=== PATIENT | female | born 1985 | race Caucasian/White ===

== ENCOUNTER 2016-11-18 19:18 | Inpatient (IN) | payer OTHER ==
[~2016-11-18] VITALS: Ht 172.7 cm; Wt 90.0 kg
[2016-11-18] MEDS ORDERED: OXYTOCIN 30U/ 0.9% NaCL 500ML 500 ML IV ONE (19:24)
[2016-11-18] MEDS ORDERED: FENTANYL PF 100 MCG/2ML ONE (19:27)
[2016-11-18] MEDS ORDERED: NEWBORN KIT ONE (19:27)
[2016-11-18] MEDS ORDERED: OXYTOCIN 30U/ 0.9% NaCL 500ML 500 ML ONE (19:27)
[2016-11-18] MEDS ORDERED: ONDANSETRON 2MG/ML, 2ML IVPush PRN (19:30)
[2016-11-18] MEDS ORDERED: FENTANYL PF 100 MCG/2ML IVPush PRN (19:30)
[2016-11-18] MEDS ORDERED: FENTANYL PF 100 MCG/2ML IV PRN (19:30)
[2016-11-18] MEDS: LACTATED RINGERS 1,000 ML IV SCH ×2 (19:35→19:55)
[2016-11-18] MEDS ORDERED: PLEASE ENTER HEIGHT AND WEIGHT MC SCH (20:00)
[2016-11-18] MEDS ORDERED: FENTANYL/BUPIV./NS/PF 250 ML EPIDCONT ONE (20:05)
[2016-11-18] MEDS ORDERED: LACTATED RINGERS 1,000 ML IV SCH (20:48)
[2016-11-18] MEDS ORDERED: FENTANYL/BUPIV./NS/PF 250 ML EPIDCONT SCH (20:48)
[2016-11-18] MEDS ORDERED: NALOXONE 0.4 MG/ML, 1ML IVPush PRN (21:00)
[2016-11-18] MEDS ORDERED: LACTATED RINGERS 1,000 ML IVBOLUS PRN (21:00)
[2016-11-18] MEDS ORDERED: EPHEDRINE 50 MG/ML, 1ML IVPush PRN (21:00)
[2016-11-18] MEDS ORDERED: MISOPROSTOL 200 MCG TABLET ONE (21:11)
[2016-11-18] MEDS ORDERED: OXYTOCIN 30U/ 0.9% NaCL 500ML 500 ML IV SCH (21:53)
[2016-11-18] MEDS ORDERED: MISOPROSTOL 200 MCG TABLET SL PRN (22:00)
[2016-11-18] MEDS ORDERED: OXYcodone/APAP 5/325MG TABLET PO PRN ×2 (22:00)
[2016-11-18] MEDS ORDERED: ONDANSETRON 2MG/ML, 2ML IV PRN (22:00)
[2016-11-18] MEDS ORDERED: ACETAMINOPHEN 325 MG TABLET PO PRN (22:00)
[2016-11-18] MEDS ORDERED: ONDANSETRON 2MG/ML, 2ML ONE (22:34)
[2016-11-19] MEDS: IBUPROFEN 600 MG TABLET PO PRN ×2 (03:00→05:50)
[2016-11-19] MEDS ORDERED: PRENATAL VIT/IRON/FA 1 EACH TABLET ONE (07:58)
[2016-11-19] MEDS ORDERED: PRENATAL VIT/IRON/FA 1 EACH TABLET PO SCH (09:00)
[2016-11-19] MEDS ORDERED: DIPH,PERTUSS(ACELL),TET VAC/PF NC IM-VACC ONE (21:30)
[2016-11-20] MEDS: IBUPROFEN 600 MG TABLET PO PRN ×2 (03:00→09:00)
[2016-11-20] MEDS: DOCUSATE 100 MG CAPSULE PO PRN ×2 (06:00→09:00)
[2016-11-20] MEDS ORDERED: DIPH,PERTUSS(ACELL),TET VAC/PF NC IM-VACC ONE (17:30)
== END 2016-11-20 14:12 | disposition home or self-care (01) | DRG 775 ==
LOC: LDOP 19:18 → LDIP 19:30 → 2NW 21:37
PROVIDERS: ADMIT Obstetrics & Gynecology; ATTEND Obstetrics & Gynecology
PROC: 10E0XZZ Delivery of Products of Conception, External Approach (ICD-10-PCS; principal; 2016-11-18)
PROC: 10907ZC Drainage of Amniotic Fluid, Therapeutic from Products of Conception, Via Natural or Artificial Opening (ICD-10-PCS; 2016-11-18)
PROC: 3E0R3CZ (ICD-10-PCS; 2016-11-18)
PROC: 00HU33Z Insertion of Infusion Device into Spinal Canal, Percutaneous Approach (ICD-10-PCS; 2016-11-18)
DX: O69.81X0 Labor and delivery complicated by cord around neck, without compression, not applicable or unspecified (principal); Z3A.37 37 weeks gestation of pregnancy; Z37.0 Single live birth; Z23 Encounter for immunization
CPT/HCPCS: 36415; 85025; 86850; 86900; 90715; J2405; J3010; J2590; J7120